=== PATIENT | female | born 1990 | race Caucasian/White ===

== ENCOUNTER 2017-07-23 08:45 | Emergency (ER) | payer BC, MEDICAID ==
[~2017-07-23] VITALS: Ht 160 cm; Wt 58.5 kg
--- NOTE | 2017-07-23 09:59 | NUR ---
Crutches dispensed. Pt instructed on proper use of crutches. Patient able to demonstrate correct use of crutches. Patient discharged to home in stable conditon. Written and verbal after care instructions given to patient and partner. Patient and family verbalized understanding of instructions.
== END 2017-07-23 10:01 | disposition home or self-care (01) ==
LOC: ER 08:45
DX: S92.355A Nondisplaced fracture of fifth metatarsal bone, left foot, initial encounter for closed fracture (principal); X50.9XXA Other and unspecified overexertion or strenuous movements or postures, initial encounter; Y93.B1 Activity, exercise machines primarily for muscle strengthening; Y92.89 Other specified places as the place of occurrence of the external cause; Y99.8 Other external cause status
CPT/HCPCS: 73610; 73630; 99284; A4663